=== PATIENT | female | born 1980 | race Two or more races ===

== ENCOUNTER 2024-12-24 08:22 | Emergency (ER) | payer MEDICAID, SELFPAY ==
[2024-12-24 08:36] VITALS: BMI 40.4
[2024-12-24 08:39] VITALS: BP 119/85; PULSE 71; RESP 20; O2SAT 99
--- NOTE | 2024-12-24 08:43 | PC.NURSE ---
PATIENT BROUGHT IN BY EMS SECONDARY TO TRIP AND FALL TODAY WHILE AT WORK. 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 PATIENT ABLE TO STAND WITH AND INCREASE IN PAIN. 9/10 ON PAIN SCALE. NO DEFORMITY OR SWELLING AT THIS TIME.
--- NOTE | 2024-12-24 09:08 | XR_ITS ---
Examination: Left knee 4 views Technique: AP oblique lateral axial left knee 4 views Date and time: December 24, 2024 0939 hrs. Indications: Patient fell today with injury to the knee, knee pain. Findings: No acute fracture. Small knee effusion. No patellar dislocation Impression: No acute fracture
--- NOTE | 2024-12-24 09:08 | EDNOTE_ITS ---
<Statement entered by Fransisca Barnes MD - 01/08/25 06:30> I, Fransisca Barnes MD, have reviewed the history, exam, and assessment of the patient. I have evaluated the patient independently and agree with the plan of care documented by [ ]. All diagnostic studies were reviewed and discussed. I confirm the diagnosis as documented by the Resident. I was present during the Medical Decision Making for this patient. The patient's plan of care was created between myself and the Resident and consistent with our discussion of the patient's case. ED General RME/HPI General Chief complaint: Extremity Injury, Lower Stated complaint: FALL Time Seen by Provider: 12/24/24 09:13 Arrival date/time: 12/24/24 08:22 RME / HPI RME / HPI narrative: 44-year-old female with no relevant past medical history comes into the ED brought in by ambulance after a ground-level fall at work. 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 Patient denies having any head trauma or back trauma. States that she felt like a pop in her left knee with is immediately very painful. Otherwise patient does not have any other complaints at this time other than pain. She did mention that her left shoulder was a little bit sore, but has good range of motion. Otherwise no other associated symptoms. Denies nausea, vomiting, loss of consciousness, palpitations, chest pain, shortness of breath, or diarrhea. Denies any alcohol, smoking, or illicit drugs Related Data Previous Rx's ?Medication ?Instructions ?Recorded ibuprofen 600 mg tablet 600 mg PO Q6H PRN pain #20 tabs 12/24/24 Allergies Allergy/AdvReac Type Severity Reaction Status Date / Time No Known Allergies Allergy Verified 11/02/23 06:20 Review of Systems Review of Systems Systems Reviewed: All systems reviewed, normal except as documented Past Medical History Past Medical History Comments PMH COMMENT: PMH: None Social Hx: Denies any smoking, drugs, drinking Medications: None ED Exam Narrative Physical exam: Gen: A&O X 3, NAD HEENT: NCAT, EOMI, Pupils reactive BAIRON, not icteric. External ears normal. No rhinorrhea. Moist mucous membranes. Neck: Supple, full range of motion, no observable masses, No meningeal sign. Lungs: No Respiratory distress, clear bilateral. CV: RRR, no murmurs. Abdomen: Soft, nondistended, No rebound tenderness. MSK: No joint swelling, no redness, peripheral pulses presents, lumbar with no edema. Left knee abrasion laterally the patella area, Rigo positive on external rotation, patient has good mobility of the leg with good strength and full range of motion. Left knee was tender to palpation and painful with motion. Left elbow full range of motion with mild pain with motion. Skin: No rashes, petechiae, lesions.. Neuro: No focal neurological deficits appreciated, sensory and motor intact. Psych: Cooperative, appropriate mood and effect. Course Quality Measures none Orders Category Date Time Status XR knee comp LT 4V Stat Exams 12/24/24 09:08 Taken HYDROcodone*/APAP 5/325 [Delta 5/325] Med 12/24/24 09:08 Discontinued 1 tab PO X1 ONE Vital Signs Vital signs: Vital Signs Pulse Rate 71 12/24/24 08:39 Respiratory Rate 20 12/24/24 08:39 Blood Pressure 119/85 H 12/24/24 08:39 Pulse Oximetry (%) 99 12/24/24 08:39 Oxygen Delivery Method Room Air 12/24/24 08:39 Discharge Plan Plan Patient Disposition: HOME (Self Care) Prescriptions/Referrals Prescriptions/Med Rec: New ibuprofen 600 mg tablet 600 mg PO Q6H PRN (Reason: pain ) Qty: 20 0RF Problem List Clinical Impression: Contusion of knee Patient/Caregiver Discharge Instructions Other Activity Instructions:: Follow-up primary care physician within 1 to 2 days. Can take ibuprofen 600 mg every 6 hours as needed for pain for the next 2 or 3 days. Rest for the next 2-3 days Apply cold compresses to the knee to decrease swelling and pain. Keep leg elevated Use Justice wrap on Left knee Come back to the ED if worsening pain or swelling develops or any other worsening symptoms. Education Materials: ED Soft Tissue Contusion, ED Contusion, Lower Extremity Print Language: Burkinan Stand Alone Forms: [employer] Award Info., Patient Portal Info Letter MDM Narrative MDM hospital course: Patient was seen and evaluated by myself upon arrival. Diagnostic imaging was ordered and pain medication. X-ray of the knee at this time does not show any gross fractures. At this time patient is stable enough to be discharged back home. Will discharge on ibuprofen and instructions to keep leg elevated, apply cold compresses, and use Justice wrap. Case disclosed with Attending Dr. Cameron Dueñas PGY2 Disclaimer: Even though this this note was dictated by speech recognition and even though it was carefully revised there may still be minor errors in recreational therapy aide due to voice recognition software. Medication Administration(s) Medication Administration History Discontinued Medications Hydrocodone Bitart/Acetaminophen (Hydrocodone/Apap 5/325 Tablet) 1 tab PO X1 ONE Stop: 12/24/24 09:09 Last Admin: 12/24/24 09:19 Dose: 1 tab Documented By: PATSY
[2024-12-24] MEDS: HYDROcodone/APAP 5/325 TABLET 1 TAB PO (09:19)
== END 2024-12-24 11:30 | disposition home or self-care (01) ==
PROVIDERS: Emergency Provider Emergency Medicine
DX: S80.02XA Contusion of left knee, initial encounter (principal); W01.0XXA Fall on same level from slipping, tripping and stumbling without subsequent striking against object, initial encounter; Y93.E5 Activity, floor mopping and cleaning; Y99.0 Civilian activity done for income or pay
CPT/HCPCS: 73564; 99283; A9270